=== PATIENT | female | born 1990 | race African-American/Black ===

== ENCOUNTER 2018-03-21 04:18 | Emergency (ER) | payer BC ==
[~2018-03-21] VITALS: Ht 170.2 cm; Wt 96.2 kg
[2018-03-21] MEDS ORDERED: BLISOVI 24 FE1 EACH PO (04:36)
[2018-03-21 05:28] LABS: URINE CLARITY CLEAR; URINE COLOR YELLOW; URINE GLUCOSE-RANDOM* NEGATIVE (Negative); URINE KETONES 3+ (Negative); URINE PROTEIN (DIPSTICK) TRACE (Negative); URINE SPECIFIC GRAVITY >= 1.030 (1.005-1.035)
[2018-03-21 05:34] LABS: ICTOTEST (BILI CONFIRMATORY) Positive (Negative); URINE BILIRUBIN 1+ (Negative); URINE BLOOD TRACE (Negative); URINE LEUKOCYTES NEGATIVE (Negative); URINE NITRITE NEGATIVE (Negative); URINE UROBILINOGEN 0.2 E.U./dl (0.2-1.0)
[2018-03-21 05:42] LABS: CASTS None Seen /LPF (None Seen); MUCUS 0-3 Light strn/LPF (None Seen); SQUAMOUS >10 Many /LPF (0-3)
[2018-03-21 05:43] LABS: CRYSTALS None Seen /LPF (None Seen); URINE RBC 3-10 Few /HPF (0-2); URINE WBC 0-5 Rare /HPF (0-5)
[2018-03-21 05:59] LABS: ABSOLUTE NEUTROPHILS 7.2 thou/uL (1.4-8.2); BASOPHILS 0.6 % (0.0-2.0); HEMATOCRIT 36.4 % (37.0-47.0); HEMOGLOBIN 12.3 gm/dL (12.0-15.0); LYMPHOCYTES 10.7 % (24.0-44.0); MCH 27.8 pg (26.0-34.0); MCHC 33.7 g/dL (28.0-37.0); MCV 82.5 fL (80.0-100.0); MONOCYTES 2.4 % (1.0-8.0); PLATELET COUNT 272 thou/uL (150-400); POLYS 86.3 % (36.0-66.0); RBC 4.41 mil/uL (4.20-5.00); RDW 16.9 % (10.5-14.5); WBC 8.3 thou/uL (4.0-11.0)
[2018-03-21 06:13] LABS: ALBUMIN 3.7 g/dL (3.4-5.0); CALCIUM 8.6 mg/dL (8.5-10.1); CREATININE 0.9 mg/dL (0.6-1.0); POTASSIUM 3.3 mmol/L (3.5-5.1); TOTAL BILIRUBIN 0.7 mg/dL (<0.1-1.0)
[2018-03-21 06:55] VITALS: BP 112/57
== END 2018-03-21 06:55 | disposition home or self-care (01) ==
LOC: ER 04:18
PROVIDERS: Emergency Medicine
DX: K21.0 Gastro-esophageal reflux disease with esophagitis (principal); E86.0 Dehydration

== ENCOUNTER 2018-07-13 05:44 | Emergency (ER) | payer BC ==
[~2018-07-13] VITALS: Ht 170.2 cm; Wt 97.5 kg
[~2018-07-13 05:44] MED LIST: BLISOVI 24 FE1 EACH PO
[2018-07-13] MEDS ORDERED: DOXYCYCLINE 10100 MG PO (06:01)
[2018-07-13] MEDS ORDERED: PRILOSEC 20 MG20 MG PO (06:55)
[2018-07-13] MEDS ORDERED: ZOFRAN ODT4 MG PO (06:55)
[2018-07-13 07:20] VITALS: BP 124/86
== END 2018-07-13 18:37 | disposition home or self-care (01) ==
LOC: ER 05:44
DX: K52.9 Noninfective gastroenteritis and colitis, unspecified (principal); K29.70 Gastritis, unspecified, without bleeding; K21.9 Gastro-esophageal reflux disease without esophagitis